=== PATIENT | male | born 1970 | race African-American/Black ===

== ENCOUNTER 2019-04-30 20:14 | Emergency (ER) | payer SELFPAY ==
[~2019-04-30] VITALS: Ht 182.9 cm; Wt 99.8 kg
[2019-04-30 20:23] VITALS: BP 146/82
--- NOTE | 2019-04-30 21:06 | PHYS DOC ---
Past Medical History Past Medical History: No Pertinent History Past Surgical History: Other Additional Past Surgical Histo: LEFT KNEE Alcohol Use: None Drug Use: None Adult General Chief Complaint Chief Complaint: LOWER EXT PAIN HPI HPI Patient is a 48 year old male that presents with right lower extremity injury. The patient states that last week he scratched leg and became hot and infected and swollen. They states is improving however wanted someone to check it out, and wants a work note. The patient denies any pain at this time. No redness or exudate noted. States he has been taking ibuprofen at home. Review of Systems Review of Systems Constitutional: Denies fever or chills [] Eyes: Denies change in visual acuity, redness, or eye pain [] HENT: Denies nasal congestion or sore throat [] Respiratory: Denies cough or shortness of breath [] Cardiovascular: No additional information not addressed in HPI [] GI: Denies abdominal pain, nausea, vomiting, bloody stools or diarrhea [] : Denies dysuria or hematuria [] Musculoskeletal: Denies back pain or joint pain [] Integument: Reports scratch to right leg. Neurologic: Denies headache, focal weakness or sensory changes [] Endocrine: Denies polyuria or polydipsia [] Complete systems were reviewed and found to be within normal limits, except as documented in this note. Allergies Allergies Allergies Coded Allergies Type Severity Reaction Last Updated Verified No Known Drug Allergies 04/30/19 No Physical Exam Physical Exam Constitutional: Well developed, well nourished, no acute distress, non-toxic appearance. [] HENT: Normocephalic, atraumatic, bilateral external ears normal, oropharynx moist, no oral exudates, nose normal. [] Eyes: PERRLA, EOMI, conjunctiva normal, no discharge. [] Neck: Normal range of motion, no tenderness, supple, no stridor. [] Cardiovascular:Heart rate regular rhythm, no murmur [] Lungs & Thorax: Bilateral breath sounds clear to auscultation [] Abdomen: Bowel sounds normal, soft, no tenderness, no masses, no pulsatile masses. [] Skin: Warm, dry, no erythema, no rash. [] Extremities: No tenderness, no cyanosis, no clubbing, ROM intact, no edema. [] Neurologic: Alert and oriented X 3, normal motor function, normal sensory function, no focal deficits noted. [] Psychologic: Affect normal, judgement normal, mood normal. [] Current Patient Data Vital Signs Vital Signs Date Time Temp Pulse Resp B/P (MAP) Pulse Ox O2 Delivery O2 Flow Rate FiO2 04/30/19 20:23 97.9 99 20 146/82 (103) 98 Room Air 97.9 EKG EKG [] Radiology/Procedures Radiology/Procedures [] Course & Med Decision Making Course & Med Decision Making Pertinent Labs and Imaging studies reviewed. (See chart for details) Leg appears healed no signs of infection noted. Will d/c home. Dragon Disclaimer [employer] Disclaimer This electronic medical record was generated, in whole or in part, using a voice recognition dictation system. Departure Departure Impression: Primary Impression: Encounter for medical screening examination Disposition: HOME, SELF-CARE Condition: STABLE Referrals: NO PCP (PCP) Patient Instructions: Medical Screening Exam Additional Instructions: Thank you for visiting . We appreciate you trusting us with your care. If any additional problems come up don't hesitate to return to visit us. Please follow up with your primary care provider so they can plan additional care if needed and know about the problem that you had. If symptoms worsen come back to the Emergency Department. Any concerning symptoms that start such as chest pain, shortness of air, weakness or numbness on one side of the body, running high fevers or any other concerning symptoms return to the ER. RUTH SILVA APRN Apr 30, 2019 21:06
== END 2019-04-30 21:10 | disposition home or self-care (01) ==
LOC: ER 20:14
DX: S80.811A Abrasion, right lower leg, initial encounter (principal); X58.XXXA Exposure to other specified factors, initial encounter; Y93.89 Activity, other specified; Y92.89 Other specified places as the place of occurrence of the external cause; Y99.8 Other external cause status
CPT/HCPCS: 99281

== ENCOUNTER 2020-02-01 12:13 | Emergency (ER) | payer SELFPAY ==
[~2020-02-01] VITALS: Ht 177.8 cm; Wt 104.5 kg
[~2020-02-01 12:13] MED LIST: AMLO10TA8 PO; ERTA1VIA16 IJ; INSU100I11 SQ; LACT1CAP19 PO; LISI-338 PO; MULT1TAB90 PO; NYST60PO TP; OXYC1TAB15 PO; POTA20TA4 PO
[2020-02-01 12:55] VITALS: BP 136/93
--- NOTE | 2020-02-01 13:18 | PHYS DOC ---
Past Medical History Past Medical History: No Pertinent History, Hypertension Past Surgical History: Other Additional Past Surgical Histo: LEFT KNEE Smoking Status: Current Every Day Smoker Alcohol Use: Rarely Drug Use: None General Adult EDM: Chief Complaint: WOUND CHECK HPI: HPI: Patient is a 49 year old male who presents with patient has a abscess with necrosis that he has had since January [address] Sousa for. He also sees wound care. They told him that if any leakage in the bandage was to happen that he need to have it reinforced so no air would get in there. Patient does have a wound VAC attached to the area. Patient is only here to have his dressings reinforced. Patient has no complaints. Patient states that he goes to wound care and the bandages are going to be changed tomorrow he just needs reinforcement. Review of Systems: Review of Systems: Integument: Denies rash. Needs reinforcement of wound bandages. [] Heart Score: Risk Factors: Risk Factors: DM, Current or recent (<one month) smoker, HTN, HLP, family history of CAD, obesity. Risk Scores: Score 0 - 3: 2.5% MACE over next 6 weeks - Discharge Home Score 4 - 6: 20.3% MACE over next 6 weeks - Admit for Clinical Observation Score 7 - 10: 72.7% MACE over next 6 weeks - Early Invasive Strategies Allergies: Allergies: Allergies Coded Allergies Type Severity Reaction Last Updated Verified No Known Drug Allergies 01/31/20 No Physical Exam: PE: Constitutional: Well developed, well nourished, no acute distress, non-toxic appearance. [] HENT: Normocephalic, atraumatic, bilateral external ears normal, oropharynx moist, no oral exudates, nose normal. [] Eyes: PERRLA, EOMI, conjunctiva normal, no discharge. [] Neck: Normal range of motion, no tenderness, supple, no stridor. [] Cardiovascular:Heart rate regular rhythm, no murmur [] Lungs & Thorax: Bilateral breath sounds clear to auscultation [] Abdomen: Bowel sounds normal, soft, no tenderness, no masses, no pulsatile mass es. [] Skin: Warm, dry, no erythema, no rash. Wound VAC attached to left hip wound. [] Back: No tenderness, no CVA tenderness. [] Extremities: No tenderness, no cyanosis, no clubbing, ROM intact, no edema. [] Neurologic: Alert and oriented X 3, normal motor function, normal sensory function, no focal deficits noted. [] Psychologic: Affect normal, judgement normal, mood normal. [] EKG: EKG: [] Radiology/Procedures: Radiology/Procedures: [] Course & Med Decision Making: Course & Med Decision Making Pertinent Labs and Imaging studies reviewed. (See chart for details) Bandages are starting to come up that are over his wound and patient states that he felt some leakage of fluid on his leg earlier. Wound dressings are reinfored with tape. [] Dragon Disclaimer: Dragon Disclaimer: This electronic medical record was generated, in whole or in part, using a voice recognition dictation system. Departure Departure Impression: Primary Impression: Encounter for wound care Disposition: 01 HOME, SELF-CARE Condition: STABLE Referrals: NO PCP (PCP) Patient Instructions: Wound Care, [id number] Additional Instructions: Follow-up at all your scheduled appointments. GABI VILLA HUMAN RESOURCE ASSISTANT February 01, 2020 13:18
== END 2020-02-01 13:25 | disposition home or self-care (01) ==
LOC: ER 12:13
DX: S81.802D Unspecified open wound, left lower leg, subsequent encounter (principal); X58.XXXD Exposure to other specified factors, subsequent encounter
CPT/HCPCS: 96365; 96367; 99281